=== PATIENT | male | born 1950 | race Caucasian/White ===

== ENCOUNTER 2016-10-22 11:12 | Emergency (ER) | payer BC, MEDICARE ==
--- NOTE | 2016-10-22 11:28 | Emergency Department Record ---
History of Present Illness - General Chief complaint: Flank Pain Stated complaint: FLANK PAIN Time Seen by Provider: 10/22/16 11:27 Source: Patient Mode of Arrival: Ambulatory Limitations: No limitations - History of Present Illness Initial comments: The patient is here due to an 8 hour hx of L flank pain. The pain came on suddenly and is a sharp stabbing pain that starts in the L flank and does radiate to his L groin at times. He was nauseated with it but has not vomited and presently the nausea has resolved. The patient denies any CP, SOB, dysuria, hematuria or fever. The patient has had a hx of kidney stones like this and has had a partial colon resection due to colon CA. The patient does not want any pain medicine at this time. MD Complaint: Other Onset/Timin -: Hour(s) Location: Abdomen, Left flank Radiation: Back Severity: Moderate Severity scale (1-10): 9 Quality: Aching Consistency: Constant Improves with: None Worsens with: None - Related Data Sexually active: Yes Home Medications Medication Instructions Recorded Confirmed Last Taken Albuterol Sulfate [Proair Hfa] 1 - 2 puff IH .EVERY 4-6 HOURS PRN 10/22/1610/22 1 Day Ago ~10/21/16 Budesonide/Formoterol Fumarate 10.2 gm IH DAILY 10/22/16 10/22/16 1 Day Ago [Symbicort 160-4.5 Mcg Inhaler] ~10/21/16 Lisinopril 10 mg PO DAILY 10/22/16 10/22/16 1 Day Ago ~10/21/16 Montelukast Sodium [Singulair] 10 mg PO QHS 10/22/16 10/22/16 1 Day Ago ~10/21/16 Tiotropium [place] [Spiriva] 18 mcg IH DAILY 10/22/16 10/22/16 1 Day Ago ~10/21/16 Previous Rx's Medication Instructions Recorded Hydrocodone/Acetaminophen [Alamo 1 - 2 each PO QID #20 tablet 10/22/16 5-325 Tablet] Ondansetron [Zofran Odt] 4 mg SL .Q4-6H PRN #12 tab.rapdis 10/22/16 Allergies Allergy/AdvReac Type Severity Reaction Status Date / Time No Known Drug Intolerances Allergy Unknown HYPERSENSIT Verified 10/22/16 11:24 IVITY Travel Screening - Travel/Exposure Within Last 30 Days Have you traveled within the last 30 days?: No - Travel/Exposure Within Last Year Have you traveled outside the [place] in the last year?: No - Additonal Travel Details Have you been exposed to anyone with a communicable illness?: No - Travel Symptoms Symptom Screening: None Review of Systems Constitutional: Denies: Chills, Fever Eyes: Denies: Eye discharge ENT: Denies: Congestion Respiratory: Denies: Cough, Dyspnea Past Medical History - SOCIAL HISTORY Smoking Status: Former smoker Alcohol Use: Occasional Drug Use: None - RESPIRATORY Hx Asthma: Yes Hx Bronchitis: Yes Hx COPD: Yes Comment:: seasonal allergies - CARDIOVASCULAR Hx Hypertension: Yes - NEURO Hx Neuro Disorders: No - GI Hx GI Disorders: Yes - Hx Kidney Stones: Yes - ENDOCRINE Hx Diabetes: No Hx Thyroid Disease: No - MUSCULOSKELETAL Hx Musculoskeletal Disorders: No - PSYCH Hx Psych Problems: No - HEMATOLOGY/ONCOLOGY Hx Cancer: Yes Hx Chemotherapy: No Hx Radiation Therapy: No Family Medical History Any Significant Family History?: Yes Physical Exam - General General Appearance: Alert, Oriented x3, Cooperative, No acute distress - Head Head exam: Atraumatic, Normocephalic, Normal inspection - Eye Eye exam: Normal appearance, PERRL - Neck Neck exam: Normal inspection, Full ROM. negative: Tenderness - Respiratory Respiratory exam: Normal lung sounds bilaterally. negative: Respiratory distress - Cardiovascular Cardiovascular Exam: Regular rate, Normal rhythm, Normal heart sounds - GI/Abdominal GI/Abdominal exam: Soft, Tenderness (There is diffuse tenderness to the L lower and upper quads.). negative: Distended, Guarding, Pulsatile mass, Rebound, Rigid - Extremities Extremities exam: Normal inspection, Full ROM, Normal capillary refill. negative: Tenderness - Neurological Neurological exam: Alert, Normal gait. negative: Abnormal gait, Motor sensory deficit Course Vital Signs 10/22/16 11:17 Temperature 98.6 F Pulse Rate 61 Respiratory 20 Rate Blood Pressure 155/94 Pulse Ox 98 - Reevaluation(s) Reevaluation #1: 10/22/16 12:29 The patient is doing better at this time. His pain is improving and he denies any nausea or vomiting. I did discuss the CT results with him and the Large L Ureter stone present. Reevaluation #2: The patient is doing a lot better. His pain has resolved and he is resting comfortably. 10/22/16 12:55 Reevaluation #3: The patient is doing very well at this time. I did discuss the case and CT with Dr. Kiser and he would like to see the patient in the office in 1-2 days. Since the patient is doing so well and is pain free with no nausea he feels the patient can follow up as an outpatient. I also did inform the patient and of the AAA on the CT and enlarged prostate and they told me he has a long hx of that issue. I did stress the need to F/U with his PCP to get that evaluated further. 10/22/16 13:10 10/22/16 14:00 Reevaluation #4: The patient did have the return of some pain in his anterior abdomen with standing. There is no nausea, vomiting, or fever. On exam he did have mild LUQ abdominal tenderness. The patient became somewhat angry due to the pain returning. I explained to him that I am not sure why the pain is so positional but we could do a CT with contrast to be absolutely sure the intestinal issue with the small hernia is not causing any issues. I explained to him we would be doing that to be sure there is no early obstruction which could lead to more pain, vomiting, fever, and intestinal ischemia. I explained to him that if that condition is not taken care of early it could lead to bowel infarction and a bad infection which could make the patient very ill. He understands the issues but is refusing the CT and only wants to go home and see his [facility]. I then did explain to him that he was told he could return at any time for re- evaluation. 10/22/16 13:25 Medical Decision Making - Data Complexity MDM Data: Labs Ordered and/or Reviewed, X-Ray Ordered and/or Reviewed - Lab Data Result diagrams: 10/22/16 11:35 10/22/16 11:35 - Radiology Data Radiology results: Report reviewed (Abd CT: 11 mm L proximal ureter stone with mod hydro and perinephric fat stranding. There is a 3.4 CM AAA and an umbilical hernia with no obstruction or bowel edema.) Disposition Disposition: Discharge Clinical Impression: Ureteral stone with hydronephrosis Disposition: Home, Self-Care Condition: (1) Good Instructions: Renal Colic (ED) Additional Instructions: Please see Dr. Kiser in the office in 1-2 days for recheck. Please take Motrin for pain and use Alamo if needed and Zofran for nausea. Please return to the ER for any increasing pain, fever, or vomiting. Please also F/U with your PCP to have the incidental findings with the AAA and prostate evaluated further also. Prescriptions: Hydrocodone/Acetaminophen [Alamo 5-325 Tablet] 1 - 2 each PO QID #20 tablet Ondansetron [Zofran Odt] 4 mg SL .Q4-6H PRN #12 tab.rapdis PRN Reason: Nausea Referrals: [facility] [Provider Group] ADRIANA VARGAS M.D. [MEDICAL DOCTOR] - Forms: Patient Portal Access Time of Disposition: 13:13 Quality - Quality Measures Quality Measures: N/A - Blood Pressure Screening View Details: Yes Does Patient Have Any of the Following: No Blood Pressure Classification: Hypertensive Reading Systolic Measurement: 155 Diastolic Measurement: 94 Screening for High Blood Pressure: < Pre-Hypertensive BP, F/U Documented > [ [id number]] Pre-Hypertensive Follow-up Interventions: Referral to alternative/primary care provider.
[2016-10-22] MEDS ORDERED: 0.9 % SODIUM CHLORIDE 1,000 ML BAG IV ONE (11:32)
[2016-10-22 11:41] LABS: BASO % 0.3 % (0-6); EOS % 0.4 % (0-6); GRAN % 78.5 % (47-80); HEMATOCRIT 43.2 % (42.0-52.0); HEMOGLOBIN 14.9 gm/dl (14.0-18.0); LYMPH % 14.4 % (16-45); MEAN CELL VOLUME 90.9 fl (81-97); MEAN CORPUSCULAR HEMOGLOBIN 31.4 pg (27-33); MEAN CORPUSCULAR HGB CONC 34.5 g/dl (32-36); MEAN PLATELET VOLUME 8.5 fl (7.4-10.4); MONO % 6.4 % (0-9); PLATELET COUNT 331 K/uL (130-400); RED BLOOD COUNT 4.75 M/uL (4.40-5.70); WHITE BLOOD COUNT W/O DIFF 14.5 K/uL (4.2-12.2)
[2016-10-22 11:57] LABS: ALBUMIN 4.1 gm/dL (3.5-5.0); ALKALINE PHOSPHATASE 79 U/L (38-126); ALT/SGPT 50 U/L (21-72); ANION GAP 8.6 (7-16); AST/SGOT 24 U/L (17-59); BILIRUBIN,TOTAL 0.71 mg/dL (0.2-1.3); BLOOD UREA NITROGEN 19 mg/dL (9-20); CARBON DIOXIDE 24.4 mmol/L (22-30); CREATININE 0.9 mg/dL (0.66-1.25); EST GLOMERULAR FILTRATION RATE > 60 ml/min; GLUCOSE,RANDOM 116 mg/dL (70-110); LIPASE 84 U/L (23-300)
[2016-10-22] MEDS ORDERED: KETOROLAC 30 MG/ML VIAL IVP ONE (12:02)
[2016-10-22 12:48] LABS: URINE APPEARANCE CLEAR; URINE BILIRUBIN NEGATIVE (NEGATIVE); URINE BLOOD TRACE-I (NEGATIVE); URINE COLOR YELLOW; URINE GLUCOSE (UA) NEGATIVE (NEGATIVE); URINE KETONE NEGATIVE (NEGATIVE); URINE LEUKOCYTE ESTERASE NEGATIVE (NEGATIVE); URINE NITRITE NEGATIVE (NEGATIVE); URINE PROTEIN NEGATIVE (NEGATIVE); URINE UROBILINOGEN 0.2 E.U./dL (0.20 - 1.00)
[2016-10-22 12:58] LABS: URINE EPITHELIAL CELLS NONE SEEN (FEW); URINE WBC NONE SEEN (0-2/hpf)
--- NOTE | 2016-10-23 15:20 | CT SCAN REPORT ---
EXAM: CT SCAN ABDOMEN/PELVIS WO CONTRAST HISTORY: LEFT FLANK PAIN. TECHNIQUE: Sequential axial images were obtained from the diaphragms through the ischiorectal fossa without intravenous or oral contrast administration. FINDINGS: There is an 11 mm obstructing calculus in the left proximal ureter. This produces moderate left hydronephrosis. The unopacified liver, gallbladder, pancreas, and spleen appear normal. The right kidney appears normal. The small bowel appears normal. There is a small bowel of fat-containing umbilical hernia. No evidence of obstruction. The colon appears normal. The urinary bladder appears normal. There is a distal abdominal aortic aneurysm measuring 3.7 x 3.5 cm. There is a stable compression fracture deformity in the L1 vertebral body. There is prostate gland hyperplasia. IMPRESSION: 1. AN 11 MM CALCULUS IN THE LEFT PROXIMAL URETER PRODUCING MODERATE LEFT HYDRONEPHROSIS. THERE IS PERINEPHRIC FAT STRANDING. 2. SMALL BOWEL CONTAINING UMBILICAL HERNIA. NO EVIDENCE OF OBSTRUCTION. 3. PROSTATE GLAND HYPERPLASIA. 4. DISTAL ABDOMINAL AORTIC ANEURYSM MEASURING 3.7 X 3.5 CM. 5. STABLE COMPRESSION FRACTURE DEFORMITY OF THE L1 VERTEBRAL BODY. JOB NUMBER: [id number] [facility]
== END 2016-10-22 13:32 | disposition home or self-care (01) ==
LOC: ER 11:12
DX: N13.2 Hydronephrosis with renal and ureteral calculous obstruction (principal); R10.12 Left upper quadrant pain; Z85.038 Personal history of other malignant neoplasm of large intestine; Z87.442 Personal history of urinary calculi
CPT/HCPCS: 99284 ×2; 96374; 83690; 85025; 80076; 80048; 81001; 74176; J1885; 36430; J7030